=== PATIENT | male | born 1980 | race African-American/Black ===

== ENCOUNTER 2025-04-13 09:58 | Emergency (ER) | payer OTHER, MEDICAID ==
[~2025-04-13] VITALS: Ht 172.7 cm; Wt 64.0 kg
[2025-04-13 10:01] VITALS: O2SAT 97
[2025-04-13] MEDS: LIDOCAINE HCL 1% 20ML VIAL INFIL ONE (10:15)
[2025-04-13 10:30] LABS: BASOPHILS % 0.6 % (0.0-2.0); EOSINOPHILS % 0.6 % (0.0-5.0); HEMATOCRIT. 46.1 % (42.0-52.0); HEMOGLOBIN. 15.6 g/dL (14.0-18.0); LYMPHOCYTES % 32.2 % (20.0-50.0); MEAN PLATELET VOLUME 8.1 fl (7.4-10.4); MONOCYTES % 7.5 % (2.0-8.0); NEUTROPHILS % 59.1 % (40.0-76.0); PLATELET 277 x1000/uL (130-400); RED BLOOD CELL COUNT 5.05 mill/uL (4.7-6.1); RED CELL DISTRIBUTION WIDTH 13.9 % (11.6-14.6)
[2025-04-13 10:43] LABS: CREATININE 1.2 mg/dL (0.6-1.3); UREA NITROGEN BLOOD 8 mg/dL (9-23)
[2025-04-13 10:44] LABS: ETHANOL BLOOD < 10 mg/dL (<10)
[2025-04-13] MEDS: ACETAMINOPHEN 325MG TABLET PO ONE (11:55)
[2025-04-13] MEDS ORDERED: OXCARBAZEPINE 300MG TABLET PO SCH (13:15)
[2025-04-13] MEDS: OXCARBAZEPINE 300MG TABLET PO NR (14:13)
[2025-04-13 14:41] VITALS: BP 130/75; PULSE 75; RESP 14; TEMP 36.8; O2SAT 97
== END 2025-04-13 15:28 | disposition short-term general hospital (02) ==
LOC: ER 10:12 → CMPBEDREQ 19:22
DX: S01.112A Laceration without foreign body of left eyelid and periocular area, initial encounter (principal); R56.9 Unspecified convulsions; W19.XXXA Unspecified fall, initial encounter; Y93.89 Activity, other specified; Y92.89 Other specified places as the place of occurrence of the external cause; Y99.8 Other external cause status
CPT/HCPCS: 80048; 80320; 82962; 85025; 36415; 70450; 93005; 12011; 99285; J2003; G0480